=== PATIENT | male | born 2000 | race Two or more races ===

== ENCOUNTER 2024-10-04 12:41 | Emergency (ER) | payer OTHER ==
[~2024-10-04] VITALS: Ht 165.1 cm; Wt 81.6 kg
[2024-10-04 12:47] VITALS: BP 112/75; TEMP 98.4
[2024-10-04] MEDS ORDERED: TDAP [DIPH/PERTUSSIS/TET] 0.5 ML VIAL IM ONE (13:29)
[2024-10-04] MEDS: TDAP [DIPH/PERTUSSIS/TET] 0.5 ML VIAL IM ONE (13:33)
[2024-10-04 14:02] VITALS: O2SAT 98
== END 2024-10-04 14:03 | disposition home or self-care (01) ==
LOC: ER 12:44
DX: S91.332A Puncture wound without foreign body, left foot, initial encounter (principal); F41.9 Anxiety disorder, unspecified; W22.8XXA Striking against or struck by other objects, initial encounter; Y93.89 Activity, other specified; Y92.89 Other specified places as the place of occurrence of the external cause; Y99.8 Other external cause status
CPT/HCPCS: 73630-TC; 90715